=== PATIENT | male | born 1960 | race Caucasian/White ===

== ENCOUNTER 2017-02-25 23:24 | Emergency (ER) | payer MEDICAID ==
[2017-02-25 23:25] VITALS: BMI 32.0
[2017-02-25 23:57] VITALS: RESP 18; O2SAT 100
--- NOTE | 2017-02-26 00:56 | ED PDOC ---
Arrival/HPI - General Historian: Patient - History of Present Illness Time/Duration: 24 hours Symptom Onset: Sudden Symptom Course: Unchanged <Vito Gonzalez - Last Filed: 02/26/17 01:55> <Rickie Pakr - Last Filed: 02/26/17 02:10> - General Time Seen by Provider: 02/25/17 23:53 - History of Present Illness Narrative History of Present Illness (Text): 56 M with pmh of HLD, HTN presents with L shoulder pain. Pt states that he woke up in the morning and after a few hours he felt a severe aching pain in his L shoulder/Back area. He placed a patch "from [place]" on it with no relief of his symptoms. Denies any trauma. He denies any chest pain, or shortness of breath. Pt states that this happened a few weeks ago and it went away on its own. Denies any khanna, dizziness, cp, focal deficits, visual changes, abd pain, n/v /d. PMD: Dr Thurman (Vito Gonzalez) Past Medical History - Provider Review Nursing Documentation Reviewed: Yes - Cardiac Hx Hypertension: Yes - Musculoskeletal/Rheumatological Hx Falls: No - Gastrointestinal Hx Gastrointestinal Disorders: Yes (stomack problem) - Psychiatric Hx Substance Use: No <Vito Gonzalez - Last Filed: 02/26/17 01:55> Family/Social History Family/Social History: No Known Family HX, Hypertension Smoking Status: Former Smoker Hx Alcohol Use: No Hx Substance Use: No <Vito Gonzalez - Last Filed: 02/26/17 01:55> Allergies/Home Meds <Vito Gonzalez - Last Filed: 02/26/17 01:55> <Rickie Park - Last Filed: 02/26/17 02:10> Allergies/Adverse Reactions: Allergies No Known Allergies Allergy (Verified 11/19/16 19:47) Home Medications: Home Meds Medication Instructions Recorded Confirmed Lisinopril 5 mg PO DAILY 06/28/16 06/28/16 Lovastatin 20 mg PO HS 06/28/16 06/28/16 Review of Systems - Physician Review All systems were reviewed & negative as marked: Yes - Review of Systems Cardiovascular: absent: Chest Pain, Palpitations Gastrointestinal: absent: Abdominal Pain, Nausea, Vomiting Musculoskeletal: Arthralgias, Back Pain, Myalgias. absent: Neck Pain Neurological: absent: Headache, Dizziness, Focal Weakness <Vito Gonzalez - Last Filed: 02/26/17 01:55> Physical Exam Temperature: Afebrile Blood Pressure: Normal Pulse: Regular Respiratory Rate: Normal Appearance: Positive for: Well-Appearing, Non-Toxic, Comfortable Pain Distress: None Mental Status: Positive for: Alert and Oriented X 3 - Systems Exam Head: Present: Atraumatic, Normocephalic Pupils: Present: PERRL Extroacular Muscles: Present: EOMI Conjunctiva: Present: Normal Mouth: Present: Moist Mucous Membranes Neck: Present: Normal Range of Motion. No: MIDLINE TENDERNESS, Paraspinal Tenderness Respiratory/Chest: Present: Clear to Auscultation, Good Air Exchange. No: Respiratory Distress, Accessory Muscle Use Cardiovascular: Present: Regular Rate and Rhythm, Normal S1, S2. No: Murmurs Abdomen: Present: Normal Bowel Sounds. No: Tenderness, Distention, Peritoneal Signs Upper Extremity: Present: Normal Inspection, Normal ROM, Tenderness (Point tenderness over the L scapula region; FROM shoulder ). No: Cyanosis, Edema Lower Extremity: Present: Normal Inspection. No: Edema Neurological: Present: GCS=15, CN II-XII Intact, Speech Normal Skin: Present: Warm, Dry, Normal Color. No: Rashes Psychiatric: Present: Alert, Oriented x 3, Normal Insight, Normal Concentration <Vito Gonzalez - Last Filed: 02/26/17 01:55> Medical Decision Making <Vito Gonzalez - Last Filed: 02/26/17 01:55> <Rickie Park - Last Filed: 02/26/17 02:10> ED Course and Treatment: Impression: 56 M with pmh of HLD, and HTN presents to the ED with L shoulder pain. Differential Diagnosis included but are not limited to: MSK / r/o atypical cp Plan: - CBC, CMP, Cardiac iso - EKG stat - Shoulder and chest xray - Reassess and disposition Progress Notes: 02/26/17 01:06 EKG: Ordered, reviewed, and independently interpreted the EKG. 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 02/26/17 01:55 Ordered Ultram for pain. On reevaluation the patient feels better and is in no acute distress. I have discussed the results and plan with the patient, who expresses understanding. Patient given the opportunity to ask question, all questions were answered and there is agreement with the plan to discharge the patient home. Patient is stable for discharge. Patient was instructed to follow up with physician/clinic in 1-2 days or return if symptoms persist/worsen or new concerning symptoms arise. (Vito Gonzalez) 02/26/17 02:09 Patient seen and evaluated with resident. Agree with HPI, clinical findings, plan and treatment. A 56 year old male who presents to the emergency department complaining of left shoulder pain radiating to the back for past few hours. Will order labs, EKG, shoulder and chest X-ray. X-rays unremarkable. Patient is stable for discharge. Advised to present to emergency department for worsening symptoms and f/u with PMD within few days. (Rickie Park) - Lab Interpretations Lab Results: 02/26/17 00:45 02/26/17 00:45 Lab Results 02/26/17 00:45: Sodium 139, Potassium 4.0, Chloride 106, Carbon Dioxide 26, Anion Gap 11, BUN 12, Creatinine 1.0, Est GFR ( Amer) > 60, Est GFR (Non- Af Amer) > 60, Random Glucose 102, Calcium 9.0, Total Bilirubin 0.5, AST 25, ALT 34, Alkaline Phosphatase 59, Troponin I < 0.01, Total Protein 7.2, Albumin 3.9, Globulin 3.3, Albumin/Globulin Ratio 1.2 02/26/17 00:45: WBC 6.8, RBC 4.92, Hgb 14.0, Hct 39.7 L, MCV 80.7, MCH 28.5, MCHC 35.3, RDW 12.5, Plt Count 225, MPV 9.9, Gran % 47.3 L, Lymph % (Auto) 35.4 H, [place] % (Auto) 12.6 H, Eos % (Auto) 3.7, Baso % (Auto) 1.0, Gran # 3.19, Lymph # 2.4, [place] # 0.9 H, Eos # 0.3, Baso # 0.07 - RAD Interpretation Radiology Orders: 02/26/17 00:16 CHEST PORTABLE [RAD] Stat 02/26/17 00:17 SHOULDER LEFT ONE VIEW (OR) [RAD] Stat - Medication Orders Current Medication Orders: Discontinued Medications Ketorolac Tromethamine (Toradol) 30 mg IVP STAT STA Stop: 02/26/17 00:18 Last Admin: 02/26/17 00:52 Dose: 30 mg Tramadol HCl (Ultram) 50 mg PO STAT STA Stop: 02/26/17 01:54 <Vito Gonzalez - Last Filed: 02/26/17 01:55> - PA / TELEVISION TECHNICIAN / Resident Statement / has reviewed & agrees with the documentation as recorded. / has examined the patient and agrees with the treatment plan. <Rickie Park - Last Filed: 02/26/17 02:10> - Scribe Statement Katie Gallardo Provider Scribe Attestation: All medical record entries made by the Scribe were at my direction and personally dictated by me. I have reviewed the chart and agree that the record accurately reflects my personal performance of the history, physical exam, medical decision making, and the department course for this patient. I have also personally directed, reviewed, and agree with the discharge instructions and disposition. (Rickie Park) Disposition/Present on Arrival - Present on Arrival Any Indicators Present on Arrival: No History of DVT/PE: No History of Uncontrolled Diabetes: No Urinary Catheter: No History of Decub. Ulcer: No History Surgical Site Infection Following: None - Disposition Have Diagnosis and Disposition been Completed?: Yes Disposition Time: 01:55 Patient Plan: Discharge <Vito Gonzalez - Last Filed: 02/26/17 01:55> <Rickie Park - Last Filed: 02/26/17 02:10> - Disposition Diagnosis: Shoulder strain Disposition: HOME/ ROUTINE Condition: IMPROVED Additional Instructions: Savannah Betancur, thank you for letting us take care of you today. Your provider was Dr Park. You were treated for L shoulder strain . The emergency medical care you received today was directed at your acute symptoms. If you were prescribed any medication, please fill it and take as directed. It may take several days for your symptoms to resolve. Return to the Emergency Department if your symptoms worsen, do not improve, or if you have any other problems. Please contact your doctor or call one of the physicians/clinics you have been referred to that are listed on the Patient Visit Information form that is included in your discharge packet. Bring any paperwork you were given at discharge with you along with any medications you are taking to your follow up visit. Our treatment cannot replace ongoing medical care by a primary care provider (PCP) outside of the emergency department. Thank you for allowing the [facility] [employer] team to be part of your care today. If your symptoms recur come back to the closest ED. Follow up with your PMD within 1 -2 days. Prescriptions: Ibuprofen [Motrin] 600 mg PO Q6H PRN #20 tab PRN Reason: Pain, Moderate (4-7)
[2017-02-26 00:58] LABS: ADD MANUAL DIFF? NO
[2017-02-26 01:03] LABS: BASO # 0.07 K/mm3 (0.0-2.0); EOS # 0.3 (0.0-0.7); EOS % 3.7 % (1.5-5.0); GRAN # 3.19 (1.4-6.5); GRAN % 47.3 % (50.0-68.0); HEMATOCRIT 39.7 % (42.0-52.0); LYMPH # 2.4 (1.2-3.4); LYMPH % 35.4 % (22.0-35.0); MEAN CELL VOLUME 80.7 fL (80.0-105.0); MEAN CORPUSCULAR HEMOGLOBIN 28.5 pg (25.0-35.0); MEAN CORPUSCULAR HGB CONC 35.3 g/dl (31.0-37.0); MEAN PLATELET VOLUME 9.9 fl (7.0-11.0); MONO # 0.9 (0.1-0.6); MONO % 12.6 % (1.0-6.0); PLATELET COUNT 225 10^3/uL (120.0-450.0); RED CELL DISTRIBUTION WIDTH 12.5 % (11.5-14.5); WHITE BLOOD COUNT 6.8 10^3/ul (4.5-11.0)
[2017-02-26 01:14] LABS: ALB/GLOB RATIO 1.2 (1.1-1.8); ALKALINE PHOSPHATASE 59 U/L (38-133); ALT/SGPT 34 U/L (7-56); AST/SGOT 25 U/L (15-59); BILIRUBIN,TOTAL 0.5 mg/dL (0.2-1.3); BLOOD UREA NITROGEN 12 mg/dL (7-21); CARBON DIOXIDE 26 mmol/L (21-33); CHLORIDE 106 mmol/L (98-107); GFR AFRICAN-AMERICAN > 60; GLUCOSE,RANDOM 102 mg/dL (70-110); SODIUM 139 mmol/L (132-148); TOTAL PROTEIN 7.2 g/dL (5.8-8.3)
[2017-02-26 01:44] LABS: TROPONIN I < 0.01 ng/mL
[2017-02-26 02:39] VITALS: BP 166/84; PULSE 65; TEMP 98.1
--- NOTE | 2017-02-26 09:17 | RAD ---
HISTORY: shoulder pain COMPARISON: 11/19/2016 FINDINGS: LUNGS: No active pulmonary disease. PLEURA: No significant pleural effusion identified, no pneumothorax apparent. CARDIOVASCULAR: Normal. OSSEOUS STRUCTURES: No significant abnormalities. VISUALIZED UPPER ABDOMEN: Normal. OTHER FINDINGS: None. IMPRESSION: No active disease.
--- NOTE | 2017-02-26 09:17 | RAD ---
PROCEDURE: Radiographs of the Left Shoulder HISTORY: shoulder pain COMPARISON: No prior. FINDINGS: BONES: Normal. No fracture. JOINTS: Normal. Glenohumeral and acromioclavicular joints preserved. No osteoarthritis. SOFT TISSUES: Normal. OTHER FINDINGS: Single portable view was obtained IMPRESSION: Negative study
--- NOTE | 2017-02-26 10:00 | CARD ---
APPROVED REPORT EKG Measurement Heart [id number] <Conclusion> Normal sinus rhythm Ventricular pre-excitation, WPW pattern type A Abnormal ECG
== END 2017-02-26 02:20 | disposition home or self-care (01) ==
LOC: ED 23:24
DX: S46.912A Strain of unspecified muscle, fascia and tendon at shoulder and upper arm level, left arm, initial encounter (principal); X58.XXXA Exposure to other specified factors, initial encounter; Y92.9 Unspecified place or not applicable; I10 Essential (primary) hypertension; E78.5 Hyperlipidemia, unspecified; Z87.891 Personal history of nicotine dependence
CPT/HCPCS: 71010; 73020; 80053; 84484; 85025; 93005; 96374; 99284; J1885

== ENCOUNTER 2017-09-08 15:24 | Emergency (ER) | payer MEDICAID ==
[2017-09-08 15:24] VITALS: BMI 32.0
[2017-09-08 15:46] VITALS: BP 152/103; PULSE 86; RESP 16; TEMP 98; O2SAT 100
--- NOTE | 2017-09-08 15:53 | ED PDOC ---
Arrival/HPI - General Historian: Patient, Family - History of Present Illness Time/Duration: 1 week Symptom Onset: Gradual Symptom Course: Unchanged Activities at Onset: Rest, Light Context: Home, Work - General Chief Complaint: ENT Problem Time Seen by Provider: 09/08/17 15:27 - History of Present Illness Narrative History of Present Illness (Text): 09/08/17 15:46 Mr. 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 Patient reports that he had increased itching in his left ear 4 days ago and awoke the following morning with complete hearing loss on his left side and "40-50%" hearing loss on his right side. He reports having gone to his PMD, Dr. Thurman, who diagnosed the patient with wax impaction, prescribed him an unknown medicated ear drop and referred patient to ENT. 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 Patient denies fever, chills, headache, changes in his vision, changes in his smell, ear pain, ear discharge, rhinorrhea, facial droop, neck pain/stiffness, chest pain, palpitations, SOB, cough, abdominal pain, N/V/D/C, pain with urination, or any numbness/tingling/ weakness of any extremity. 09/08/17 15:54 (Jean Paul Lundberg) Past Medical History - Provider Review Nursing Documentation Reviewed: Yes - Travel History Have you recently traveled outside [place] w/in the past 3 mons?: No - Past History Past History: No Previous - Infectious Disease Hx of Infectious Diseases: None - Tetanus Immunization Tetanus Immunization: Unknown - Cardiac Hx Hypertension: Yes - Musculoskeletal/Rheumatological Hx Falls: No - Gastrointestinal Hx Gastrointestinal Disorders: Yes - Psychiatric Hx Substance Use: No - Anesthesia Hx Anesthesia: No Hx Anesthesia Reactions: No Hx Malignant Hyperthermia: No Family/Social History - Physician Review Nursing Documentation Reviewed: Yes Family/Social History: No Known Family HX Smoking Status: Former Smoker Hx Alcohol Use: No Hx Substance Use: No Allergies/Home Meds Allergies/Adverse Reactions: Allergies No Known Allergies Allergy (Verified 11/19/16 19:47) Home Medications: Home Meds Medication Instructions Recorded Confirmed Lisinopril 5 mg PO DAILY 06/28/16 02/26/17 Lovastatin 20 mg PO HS 06/28/16 02/26/17 Review of Systems - Physician Review All systems were reviewed & negative as marked: Yes - Review of Systems Constitutional: Normal. absent: Fevers, Night Sweats Eyes: Normal. absent: Vision Changes ENT: Hearing Changes (Bilateral hearing loss L>R). absent: Normal, Tinnitus, Voice Changes, Rhinorrhea, Sinus Congestion Respiratory: Normal. absent: SOB, Cough Cardiovascular: Normal. absent: Chest Pain, Palpitations Gastrointestinal: Normal. absent: Abdominal Pain, Constipation, Diarrhea, Nausea, Vomiting Genitourinary Male: Normal. absent: Dysuria Musculoskeletal: Normal. absent: Neck Pain Skin: Normal. absent: Rash Neurological: Normal. absent: Headache, Focal Weakness, Speech Changes, Facial Droop Endocrine: Normal Hemo/Lymphatic: Normal Psychiatric: Normal Physical Exam Vital Signs Reviewed: Yes Temperature: Afebrile Blood Pressure: Hypertensive Pulse: Regular Respiratory Rate: Normal Appearance: Positive for: Well-Appearing, Non-Toxic, Comfortable Pain Distress: None Mental Status: Positive for: Alert and Oriented X 3 - Systems Exam Head: Present: Atraumatic, Normocephalic. No: Tenderness, Abrasion Pupils: Present: PERRL. No: Sluggish, Non-Reactive, Pinpoint Extroacular Muscles: Present: EOMI. No: Gaze Palsy, Entrapment Conjunctiva: Present: Normal Ears: Present: Other (Tortuous canals with cerumen impaction bilaterally). No: Normal, NORMAL TM, Erythema, Normal Canal, TM Bulging, Fluid Mouth: Present: Moist Mucous Membranes Pharnyx: Present: Normal. No: ERYTHEMA, EXUDATE, TONSILS ENLARGED Nose (External): Present: Atraumatic Nose (Internal): Present: Normal Inspection, No Active Bleeding. No: Clear Mucous, Rhinorrhea Neck: Present: Normal Range of Motion, Trachea Midline. No: Meningeal Signs, MIDLINE TENDERNESS, Paraspinal Tenderness, JVD, Lymphadenopathy Respiratory/Chest: Present: Clear to Auscultation, Good Air Exchange. No: Respiratory Distress, Accessory Muscle Use, Wheezes, Rales, Retracting, Rhonchi , Tachypneic Cardiovascular: Present: Regular Rate and Rhythm, Normal S1, S2. No: Murmurs Abdomen: Present: Normal Bowel Sounds. No: Tenderness, Distention, Peritoneal Signs Back: Present: Normal Inspection. No: CVA Tenderness, Midline Tenderness, Paraspinal Tenderness Upper Extremity: Present: Normal Inspection. No: Cyanosis, Edema Lower Extremity: Present: Normal Inspection. No: Edema Neurological: Present: GCS=15, CN II-XII Intact, Speech Normal Skin: Present: Warm, Dry, Normal Color. 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 Guillermo's office and patient to be moved from 09/12/17 to 09/09/17. Patient agreed to earlier appointment and instructions provided. (Jean Paul Lundberg ) Patient Seen With Resident: In agreement with resident note which contains more details about the patient. Patient was seen and evaluated with resident. Came up with plan and treatment together. Agree with above physical exam findings. Reached out to ENT and gave follow-up tomorrow (Mabel Page) Disposition/Present on Arrival - Present on Arrival Any Indicators Present on Arrival: No History of DVT/PE: No History of Uncontrolled Diabetes: No Urinary Catheter: No History of Decub. Ulcer: No History Surgical Site Infection Following: None - Disposition Have Diagnosis and Disposition been Completed?: Yes Disposition Time: 16:03 Patient Plan: Discharge - Disposition Diagnosis: Excessive cerumen in both ear canals Disposition: HOME/ ROUTINE Condition: STABLE Discharge Instructions (ExitCare): Cerumen Impaction (ED) Additional Instructions: Mr. Nuñez, thank you for letting us take care of you today. Your provider was Dr. Page. You were treated for cerumen impaction. The emergency medical care you received today was directed at your acute symptoms. If you were prescribed any medication, please fill it and take as directed. It may take several days for your symptoms to resolve. Return to the Emergency Department if your symptoms worsen, do not improve, or if you have any other problems. Please contact your doctor or call one of the physicians/clinics you have been referred to that are listed on the Patient Visit Information form that is included in your discharge packet. Bring any paperwork you were given at discharge with you along with any medications you are taking to your follow up visit. Our treatment cannot replace ongoing medical care by a primary care provider (PCP) outside of the emergency department. PLEASE CONTINUE FOLLOW UP WITH ENT ON FRIDAY AND DEBROX EAR DROPS Thank you for allowing the [employer] team to be part of your care today. Referrals: Prieto Thurman MD [Primary Care Provider] - Follow up with primary Forms: [employer] (Tunisian), WORK NOTE
== END 2017-09-08 16:19 | disposition home or self-care (01) ==
LOC: ED 15:24
DX: H61.23 Impacted cerumen, bilateral (principal)

== ENCOUNTER 2018-11-09 19:44 | Emergency (ER) | payer MEDICAID ==
[2018-11-09 19:57] VITALS: BMI 31.6
[2018-11-09] MEDS ORDERED: Sodium Chloride 0.9% 1,000 ML IV STA (20:06)
[2018-11-09] MEDS ORDERED: Alum-Mag Hydrox-Simethicone Susp (30 mL) PO STA (20:17)
[2018-11-09] MEDS ORDERED: Atrop/Hyosc/Scopal/PB Elixir (120 ml) PO STA (20:17)
[2018-11-09 20:28] LABS: BASO # 0.04 K/mm3 (0.0-2.0); BASO % 0.5 % (0.0-3.0); EOS # 0.2 (0.0-0.7); EOS % 2.4 % (1.5-5.0); LYMPH # 3.1 (1.2-3.4); LYMPH % 38.6 % (22.0-35.0); MEAN CORPUSCULAR HEMOGLOBIN 28.3 pg (25.0-35.0); MEAN PLATELET VOLUME 9.7 fl (7.0-11.0); MONO # 0.7 (0.1-0.6); MONO % 9.2 % (1.0-6.0); RBC 4.94 10^6/uL (3.5-6.1); RED CELL DISTRIBUTION WIDTH 12.6 % (11.5-14.5)
--- NOTE | 2018-11-09 20:33 | ED PDOC ---
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 Patient states the pain started one hour prior to arrival when he noted shortness of breath and chest pressure 1 hour after he ingested a hearty meal with his son. He denies syncopal episodes, nausea, emesis, fevers, chills, or abdominal pain at this time. He reports increased belching and describes the pressure as a burning sensation in his chest. He denies taking any medications prior to arrival. He reports a history of smoking 4 years ago and denies any family history of cardiovascular disease. PCP: Dr. Cedric Barnett Time/Duration: 1 hour Symptom Course: Unchanged Quality: Pressure, Tightness Severity Level: 6 Activities at Onset: Eating Context: Home Past Medical History - Provider Review Nursing Documentation Reviewed: Yes - Travel History Have you recently traveled outside [place] w/in the past 3 mons?: No - Past History Past History: No Previous - Infectious Disease Hx of Infectious Diseases: None - Tetanus Immunization Tetanus Immunization: Unknown - Cardiac Hx Hypertension: Yes - Musculoskeletal/Rheumatological Hx Falls: No - Gastrointestinal Hx Gastrointestinal Disorders: Yes - Psychiatric Hx Substance Use: No - Anesthesia Hx Anesthesia: No Hx Anesthesia Reactions: No Hx Malignant Hyperthermia: No Family/Social History - Physician Review Nursing Documentation Reviewed: Yes Family/Social History: Unknown Family HX Smoking Status: Former Smoker Hx Alcohol Use: No Hx Substance Use: No Allergies/Home Meds Allergies/Adverse Reactions: Allergies No Known Allergies Allergy (Verified 11/19/16 19:47) Home Medications: Home Meds Medication Instructions Recorded Confirmed Lisinopril 5 mg PO DAILY 06/28/16 02/26/17 Lovastatin 20 mg PO HS 06/28/16 02/26/17 Review of Systems - Physician Review All systems were reviewed & negative as marked: Yes - Review of Systems Respiratory: SOB. absent: Cough, Sputum, Wheezing Cardiovascular: Chest Pain. absent: Edema, Calf Pain, LI Physical Exam Vital Signs Reviewed: Yes Temperature: Afebrile Blood Pressure: Hypertensive Pulse: Tachycardic Respiratory Rate: Normal Appearance: Positive for: Well-Appearing, Non-Toxic, Comfortable Mental Status: Positive for: Alert and Oriented X 3 - Systems Exam Head: Present: Atraumatic, Normocephalic Pupils: Present: PERRL Extroacular Muscles: Present: EOMI Conjunctiva: Present: Normal Mouth: Present: Moist Mucous Membranes Neck: Present: Normal Range of Motion Respiratory/Chest: Present: Clear to Auscultation, Respiratory Distress Cardiovascular: Present: Tachycardic Abdomen: Present: Normal Bowel Sounds. No: Tenderness, Distention, Peritoneal Signs, Rebound, Guarding Upper Extremity: Present: Normal Inspection Lower Extremity: Present: Normal Inspection. No: Edema Neurological: Present: GCS=15, Speech Normal Skin: Present: Warm, Dry, Rashes. No: Normal Color Psychiatric: Present: Alert, Oriented x 3, Normal Insight, Normal Concentration Medical Decision Making ED Course and Treatment: 11/09/18 20:57 Impression 58M w/ h/o WPW presenting to the emergency department with chest pressure and SOB 1 hour after ingesting a meal Differential Diagnoses Includes But Is Not Limited To: --Gastritis --ACS --Arrythmia Plan --Labs --CXR --EKG --Pepcid --IVF --Reassess & disposition Progress Notes 11/09/18 21:01 Labs reviewed with troponin WNL, negative BNP and no leukocytosis noted. 11/09/18 21:12 Shared decision making with patient who feels much better and desires to go home. Shared decision making with patient desiring to go home. HR noted to be 87. Chart review and interrogation notes patient seeing hearing aide technician in the past and will follow up with hearing aide technician. He reports not taking his Nexium today. He will follow up with his PCP and given cardiology follow up. He is stable for discharge. - Lab Interpretations Lab Results: 11/09/18 20:22 11/09/18 20:22 Lab Results 11/09/18 20:22: Sodium 139, Potassium 3.3 L, Chloride 105, Carbon Dioxide 27, Anion Gap 10, BUN 13, Creatinine 0.8, Est GFR ( Amer) > 60, Est GFR (Non- Af Amer) > 60, Random Glucose 110, Calcium 9.3, Magnesium 2.0, Total Bilirubin 0.6, AST 25, ALT 19, Alkaline Phosphatase 71, Troponin I < 0.01, NT-Pro-B Riddhi riuret Pep 93.7, Total Protein 7.4, Albumin 4.1, Globulin 3.2, Albumin/Globulin Ratio 1.3 11/09/18 20:22: PT 12.9 H, INR 1.16, APTT 33.6 11/09/18 20:22: WBC 8.0, RBC 4.94, Hgb 14.0, Hct 40.0 L, MCV 81.0, MCH 28.3, MCHC 35.0, RDW 12.6, Plt Count 214, MPV 9.7, Neut % (Auto) 49.3 L, Lymph % (Auto) 38.6 H, [place] % (Auto) 9.2 H, Eos % (Auto) 2.4, Baso % (Auto) 0.5, Lymph # (Auto) 3.1, [place] # (Auto) 0.7 H, Eos # (Auto) 0.2, Baso # (Auto) 0.04, Absolute Neuts (auto) 3.97 I have reviewed the lab results: Yes - RAD Interpretation Radiology Orders: 11/09/18 20:06 CHEST PORTABLE [RAD] Stat - EKG Interpretation EKG Interpretation (Text): 11/09/18 20:59 NSR @ 99 bpm Delta waves seen in various leads consistent w/ WPW RBBB ST depressions 0.5mm seen in V1-V2 Interpreted by ED Physician: Yes - Medication Orders Current Medication Orders: Sodium Chloride (Sodium Chloride 0.9%) 1,000 mls @ 999 mls/hr IV .Q1H1M STA Stop: 11/09/18 21:06 Disposition/Present on Arrival - Present on Arrival Any Indicators Present on Arrival: No History of DVT/PE: No History of Uncontrolled Diabetes: No Urinary Catheter: No History of Decub. Ulcer: No History Surgical Site Infection Following: None - Disposition Have Diagnosis and Disposition been Completed?: Yes Diagnosis: Gastritis, Bloating, Type A WPW syndrome Disposition: HOME/ ROUTINE Disposition Time: 21:17 Patient Plan: Discharge Condition: GOOD Discharge Instructions (ExitCare): Gastritis (DC), Gas and Bloating, Hfzdc-Hcntadgcu-Lyrwq Syndrome (ED) Print Language: KAZAKH Additional Instructions: Please follow up with your PCP in 3-5 days Please schedule an appointment with the hearing aide technician Referrals: Elsa Thurman MD [Primary Care Provider] - Follow up with primary Ritu Jensen MD [Staff Provider] - Follow up with primary Forms: [employer] (Botswanan)
[2018-11-09 20:35] LABS: INR 1.16; PARTIAL THROMBOPLASTIN TIME 33.6 Seconds (26.9-38.3); PROTHROMBIN TIME 12.9 SECONDS (9.4-12.5)
[2018-11-09 20:36] VITALS: TEMP 98.4; O2SAT 100
[2018-11-09 20:37] LABS: ALB/GLOB RATIO 1.3 (1.1-1.8); ALBUMIN 4.1 g/dL (3.0-4.8); ALT/SGPT 19 U/L (7-56); AST/SGOT 25 U/L (17-59); BLOOD UREA NITROGEN 13 mg/dL (7-21); CALCIUM 9.3 mg/dL (8.4-10.5); GFR NON-AFRICAN AMERICAN > 60
[2018-11-09 20:49] LABS: B-TYPE NATRIURETIC PEPTIDE 93.7 pg/mL (0-450); TROPONIN I < 0.01 ng/mL
[2018-11-09 21:33] VITALS: BP 134/71; PULSE 87; RESP 16
--- NOTE | 2018-11-10 08:50 | RAD ---
Date of service: 11/09/2018 HISTORY: sob COMPARISON: 02/26/2017 FINDINGS: LUNGS: No active pulmonary disease. PLEURA: No significant pleural effusion identified, no pneumothorax apparent. CARDIOVASCULAR: No aortic atherosclerotic calcification present. Normal cardiac size. No pulmonary vascular congestion. OSSEOUS STRUCTURES: No significant abnormalities. VISUALIZED UPPER ABDOMEN: Normal. OTHER FINDINGS: None. IMPRESSION: No active disease.
--- NOTE | 2018-11-10 12:28 | CARD ---
APPROVED REPORT Date of service: 11/09/2018 EKG Measurement Heart [id number] ME [id number] <Conclusion> Normal sinus rhythm Ventricular pre-excitation, WPW pattern type A Pseudo q waves in inferior leads Nonspecific ST changes Abnormal ECG
== END 2018-11-09 21:30 | disposition home or self-care (01) ==
LOC: ED 19:44
DX: K29.70 Gastritis, unspecified, without bleeding (principal); R14.0 Abdominal distension (gaseous); I45.6 Pre-excitation syndrome; I10 Essential (primary) hypertension; Z87.891 Personal history of nicotine dependence
CPT/HCPCS: 71045; 80053; 83735; 83880; 84484; 85025; 85610; 85730; 93005; 96361; 96374; 99284; J7030